=== PATIENT | male | born 1960 | race Caucasian/White ===

== ENCOUNTER 2018-02-26 04:38 | Emergency (ER) | payer BC ==
[2018-02-26] MEDS ORDERED: Sodium Chloride 0.9% 10 ML Syringe FLUSH PRN (04:50)
--- NOTE | 2018-02-26 05:10 | EDM.PDOC ---
ED HPI GENERAL MEDICAL PROBLEM - General Chief Complaint: Neuro Symptoms/Deficits Stated Complaint: stroke code Time Seen by Provider: 02/26/18 04:38 Source of Information: Reports: Patient History Limitations: Reports: No Limitations - History of Present Illness INITIAL COMMENTS - FREE TEXT/NARRATIVE: Pt. presents to ER with R sided weakness, R sided facial droop, and dysarthria. Pt. has been complaining of paresthesia and weakness since approx. Thursday. He states that symptoms have been intermittent in nature. At [facility] tonight ( between 7 and 8) pt was noted to be slow to respond and somewhat unsteady on his feet. No pronounced motor weakness was noted at that time, and he had not facial droop at that time. Pt. went home at the objection of his family without seeking medical attention. Sister states that he did have some facial droop at that time, but it has since worsened. Pt. woke in the night and was extremely weak and unable to stand. He did fall. Facial droop was more pronounced. Pt. states that he is not experiencing any headache. No nausea/vomiting/ diarrhea. Denies any recent illness or prodrome other than what is previously discussed. EMS recognized a stroke in progress and called a code green. He is non- compliant with his diabetes medications, and his BS has been running >300 today , and was approx. 280mg/dl prehospitally. Onset: Today Location: Reports: Upper Extremity, Right, Lower Extremity, Right Associated Symptoms: Reports: Weakness - Related Data Allergies Allergy/AdvReac Type Severity Reaction Status Date / Time No Known Drug Allergies Allergy Other Verified 02/26/18 04:49 Home Meds: Home Meds Aspirin [Halfprin] 81 mg PO DAILY 02/26/18 [History] Digestive 8/L.acidoph/Pectin [Digestive Enzymes Tablet] 1 each PO TID 02/26/18 [ History] Insulin Aspart [NovoLOG] See Protocol SUBCUT ASDIRECTED 02/26/18 [History] Insulin Detemir [Levemir Flextouch] 80 unit SQ BEDTIME 02/26/18 [History] Lisinopril 40 mg PO DAILY 02/26/18 [History] Fairland-3S/DHA/Epa/Fish Oil/D3 [Fairland-3 + D Softgel] 1 each PO DAILY 02/26/18 [ History] Simvastatin [Zocor] 20 mg PO DAILY 02/26/18 [History] Past Medical History Other Endocrine/Metabolic History: not diagnosed with diabetes at this time, pt states having trouble in the past with blood sugars ED ROS GENERAL - Review of Systems Review Of Systems: See Below Constitutional: Reports: No Symptoms HEENT: Reports: No Symptoms Respiratory: Reports: No Symptoms Cardiovascular: Reports: No Symptoms Endocrine: Reports: No Symptoms GI/Abdominal: Reports: No Symptoms : Reports: No Symptoms Musculoskeletal: Reports: No Symptoms Skin: Reports: No Symptoms Neurological: Reports: Trouble Speaking, Weakness Psychiatric: Reports: No Symptoms Hematologic/Lymphatic: Reports: No Symptoms Immunologic: Reports: No Symptoms ED EXAM, GENERAL - Physical Exam Exam: See Below Exam Limited By: No Limitations General Appearance: Alert, WD/WN, No Apparent Distress Ears: Normal External Exam, Normal Canal, Hearing Grossly Normal, Normal TMs Ear Exam: Bilateral Ear: Auricle Normal, Canal Normal, TM normal Nose: Normal Inspection, Normal Mucosa, No Blood Throat/Mouth: Normal Inspection, Normal Lips, Normal Teeth, Normal Gums, Normal Oropharynx, Normal Voice, No Airway Compromise Head: Atraumatic, Normocephalic Neck: Normal Inspection, Supple, Non-Tender, Full Range of Motion Respiratory/Chest: No Respiratory Distress, Lungs Clear, Normal Breath Sounds, No Accessory Muscle Use, Chest Non-Tender Cardiovascular: Normal Peripheral Pulses, Regular Rate, Rhythm, No Edema, No Gallop, No JVD, No Murmur, No Rub Peripheral Pulses: 4+: Radial (L), Radial (R) GI/Abdominal: Normal Bowel Sounds, Soft, Non-Tender, No Organomegaly, No Distention, No Abnormal Bruit, No Mass (Male) Exam: Deferred Rectal (Males) Exam: Deferred Back Exam: Normal Inspection, Full Range of Motion, NT Extremities: Normal Inspection, Normal Range of Motion, Non-Tender, Normal Capillary Refill, No Pedal Edema Neurological: Alert, Oriented, Other (please see attached NIH stroke documentation) Psychiatric: Normal Affect, Normal Mood Skin Exam: Warm, Dry, Intact, Normal Color, No Rash Lymphatic: No Adenopathy Course - Orders/Labs/Meds Orders: Active Orders 24 hr Category Date Time Status EKG Documentation Completion [RC] STAT Care 02/26/18 04:50 Ordered Head wo Cont [CT] Stat Exams 02/26/18 04:48 Ordered CBC WITH AUTO DIFF [HEME] Stat Lab 02/26/18 04:50 Ordered COMPREHENSIVE METABOLIC PN,CMP [CHEM] Stat Lab 02/26/18 04:50 Ordered CRP [C-REACTIVE PROTEIN] [CHEM] Stat Lab 02/26/18 04:51 Ordered INR,PT,PROTHROMBIN TIME [COAG] Stat Lab 02/26/18 04:50 Ordered MAGNESIUM [CHEM] Stat Lab 02/26/18 04:50 Ordered UA W/MICROSCOPIC [URIN] Stat Lab 02/26/18 04:50 Sodium Chloride 0.9% [Saline Flush] Med 02/26/18 04:50 Ordered 10 ml FLUSH ASDIRECTED PRN Peripheral IV Insertion Adult [OM.PC] Routine Oth 02/26/18 04:50 Ordered Medication Orders Sodium Chloride (Saline Flush) 10 ml FLUSH ASDIRECTED PRN PRN Reason: Keep Vein Open Meds: Medications Generic Name Dose Route Start Last Admin Trade Name Freq PRN Reason Stop Dose Admin Sodium Chloride 10 ml 02/26/18 04:50 Saline Flush FLUSH ASDIRECTED PRN Keep Vein Open - Radiology Interpretation Free Text/Narrative:: Stat CT results are pending Departure - Departure Time of Disposition: 05:26 Disposition: DC/Tfer to Acute Hospital 02 Condition: Good Clinical Impression: Cerebrovascular accident (CVA) - Discharge Information Referrals: PCP,Unobtain [Primary Care Provider] - Forms: ED Department Discharge, Interfacility Transfer EMTALA - Problem List Review Problem List Initiated/Reviewed/Updated: Yes - My Orders Last 24 Hours: My Active Orders 02/26/18 04:48 Head wo Cont [CT] Stat 02/26/18 04:50 EKG Documentation Completion [RC] STAT CBC WITH AUTO DIFF [HEME] Stat COMPREHENSIVE METABOLIC PN,CMP [CHEM] Stat INR,PT,PROTHROMBIN TIME [COAG] Stat MAGNESIUM [CHEM] Stat UA W/MICROSCOPIC [URIN] Stat Sodium Chloride 0.9% [Saline Flush] 10 ml FLUSH ASDIRECTED PRN Peripheral IV Insertion Adult [OM.PC] Routine 02/26/18 04:51 CRP [C-REACTIVE PROTEIN] [CHEM] Stat - Assessment/Plan Last 24 Hours: My Active Orders 02/26/18 04:48 Head wo Cont [CT] Stat 02/26/18 04:50 EKG Documentation Completion [RC] STAT CBC WITH AUTO DIFF [HEME] Stat COMPREHENSIVE METABOLIC PN,CMP [CHEM] Stat INR,PT,PROTHROMBIN TIME [COAG] Stat MAGNESIUM [CHEM] Stat UA W/MICROSCOPIC [URIN] Stat Sodium Chloride 0.9% [Saline Flush] 10 ml FLUSH ASDIRECTED PRN Peripheral IV Insertion Adult [OM.PC] Routine 02/26/18 04:51 CRP [C-REACTIVE PROTEIN] [CHEM] Stat Assessment:: CVA Plan: Discussed findings with Stroke Neurologist and [facility] ER Dr. Solares. Pt. was be transferred via ALS ground ambulance directly to ER. Definite escalation of symtoms at between 7 and 8:30 this past evening. Does not meet criteria for TPA. He is a code level 1.
[2018-02-26 05:37] LABS: CHLORIDE,CL 104 mmol/L (98-107); SODIUM,NA 138 mmol/L (136-145)
== END 2018-02-26 05:26 | disposition short-term general hospital (02) ==
LOC: VM.ED 04:38
DX: I63.9 Cerebral infarction, unspecified (principal); Z79.82 Long term (current) use of aspirin; Z79.4 Long term (current) use of insulin; Z79.899 Other long term (current) drug therapy
CPT/HCPCS: 36415; 70450; 80053; 83735; 84484; 85025; 85610; 86140; 99291